=== PATIENT | male | born 1980 | race Two or more races ===

== ENCOUNTER 2023-01-30 15:20 | Emergency (ER) | payer OTHER ==
[~2023-01-30] VITALS: Ht 172.7 cm; Wt 61.2 kg
[2023-01-30] MEDS ORDERED: SYMTUZA 800-151 EACH PO (16:20)
[2023-01-30] MEDS ORDERED: DUI500 PO (17:22)
== END 2023-01-30 17:29 | disposition home or self-care (01) ==
LOC: ER 15:20
DX: H66.93 Otitis media, unspecified, bilateral (principal)